=== PATIENT | female | born 1995 | race Caucasian/White ===

== ENCOUNTER 2017-12-16 19:56 | Emergency (ER) | payer MEDICAID ==
[~2017-12-16] VITALS: Ht 154.9 cm; Wt 53.4 kg
[2017-12-16 19:58] VITALS: BP 118/75
[2017-12-16] MEDS ORDERED: METHOCARBAMOL 750 MG TABLET ONE (20:24)
[2017-12-16] MEDS ORDERED: METHOCARBAMOL 750 MG TABLET PO ONE (20:30)
== END 2017-12-16 23:10 | disposition home or self-care (01) ==
LOC: ED 23:00
DX: S20.212A Contusion of left front wall of thorax, initial encounter (principal); G89.11 Acute pain due to trauma; R51 Headache; M54.2 Cervicalgia; M54.5 Low back pain; F17.210 Nicotine dependence, cigarettes, uncomplicated; V43.02XA Car driver injured in collision with other type car in nontraffic accident, initial encounter; Y93.89 Activity, other specified; Y92.89 Other specified places as the place of occurrence of the external cause; Y99.8 Other external cause status
CPT/HCPCS: 70450; 72072; 72110; 72125; 99284